=== PATIENT | male | born 1990 | race Caucasian/White ===

== ENCOUNTER 2019-09-08 15:10 | Inpatient (IN) | payer MEDICAID ==
[~2019-09-08] VITALS: Ht 188 cm; Wt 92.1 kg
[2019-09-08] MEDS ORDERED: VENL-193 PO (15:37)
[2019-09-08] MEDS ORDERED: ARIP15TA2 PO (15:37)
[2019-09-08 16:36] LABS: AMPHET/METH SCREEN,URINE NEGATIVE (NEGATIVE); BARBITURATE SCREEN, URINE NEGATIVE (NEGATIVE); BENZODIAZEPINES SCREEN,URINE NEGATIVE (NEGATIVE); CANNABINOID SCREEN,URINE POSITIVE (NEGATIVE); COCAINE SCREEN,URINE NEGATIVE (NEGATIVE); METHADONE SCREEN, URINE NEGATIVE (NEGATIVE); OPIATE SCREEN,URINE NEGATIVE (NEGATIVE)
[2019-09-08 16:41] LABS: PHENCYCLIDINE SCREEN,URINE NEGATIVE (NEGATIVE)
[2019-09-08 16:43] LABS: BASOPHILS % (AUTO) 0.4 % (0.0-2.0); EOSINOPHILS % (AUTO) 1.7 % (1.0-6.0); HEMATOCRIT 45.3 % (41-53); HEMOGLOBIN 14.9 g/dL (13.5-17.5); LYMPHOCYTES # (AUTO) 3.4 K/uL (1.0-4.8); LYMPHOCYTES % (AUTO) 20.3 % (22.0-44.0); MEAN CORPUSCULAR HEMOGLOBIN 27.3 pg (26.0-34.0); MEAN CORPUSCULAR VOLUME 83 fL (80-100); MONOCYTES # (AUTO) 1.3 K/uL (0.1-1.0); MONOCYTES % (AUTO) 7.6 % (2.0-9.0); NEUTROPHILS # (AUTO) 11.6 K/uL (1.8-7.7); PLATELET COUNT (AUTO) 407 K/uL (150-450); RED BLOOD CELL COUNT(AUTO) 5.48 MIL/uL (4.50-5.90)
[2019-09-08 17:06] LABS: ANION GAP 10 mmol/L (8-16); CARBON DIOXIDE 28 mmol/L (22-29); CHLORIDE 102 mmol/L (98-107); CREATININE 0.88 mg/dL (0.60-1.30); GLOMERULAR FILTR. RATE CALC > 60 mL/min (>60); GLUCOSE,RANDOM 95 mg/dL (70-110); POTASSIUM 4.2 mmol/L (3.5-5.1); SODIUM SERUM 140 mmol/L (136-145); UREA NITROGEN, BLOOD 9 mg/dL (7-18)
[2019-09-08 17:12] LABS: ALANINE AMINOTRANSFERASE 30 U/L (12-78); ALBUMIN 3.7 g/dL (3.4-5.0); ALKALINE PHOSPHATASE 98 U/L (46-116); ASPARTATE AMINOTRANSFERASE 19 U/L (15-37); BILIRUBIN,TOTAL 0.5 mg/dL (0.1-1.0); TOTAL PROTEIN, SERUM 9.1 g/dL (6.4-8.2)
[2019-09-08] MEDS ORDERED: LORazepam 2 MG TABLET PO ONE (17:30)
[2019-09-08] MEDS ORDERED: ARIPiprazole 5 MG TABLET PO ONE (17:30)
[2019-09-08] MEDS ORDERED: LORazepam 2 MG TABLET PO PRN (18:30)
[2019-09-08 20:41] VITALS: BP 133/64
[2019-09-08] MEDS: ZOLPIDEM TARTRATE 10 MG TABLET PO PRN (20:46)
[2019-09-08] MEDS ORDERED: INFLUENZA VIRUS VACCINE QVS 2019-20 (3YR+)/PF 60 MCG/0.5 ML SYRINGE IM ONE (21:00)
[2019-09-09 06:40] VITALS: BP 125/75
[2019-09-09 06:57] LABS: BASOPHILS % (AUTO) 0.4 % (0.0-2.0); EOSINOPHILS % (AUTO) 2.6 % (1.0-6.0); HEMATOCRIT 44.3 % (41-53); HEMOGLOBIN 14.7 g/dL (13.5-17.5); LYMPHOCYTES # (AUTO) 2.9 K/uL (1.0-4.8); LYMPHOCYTES % (AUTO) 21.9 % (22.0-44.0); MEAN CORPUSCULAR HEMOGLOBIN 27.4 pg (26.0-34.0); MEAN CORPUSCULAR HGB CONC 33.2 G/dL (31.0-37.0); MEAN CORPUSCULAR VOLUME 82 fL (80-100); MONOCYTES # (AUTO) 1.1 K/uL (0.1-1.0); MONOCYTES % (AUTO) 8.4 % (2.0-9.0); NEUTROPHILS # (AUTO) 8.7 K/uL (1.8-7.7); NEUTROPHILS % (AUTO) 66.7 % (40.0-70.0); PLATELET COUNT (AUTO) 346 K/uL (150-450); RED BLOOD CELL COUNT(AUTO) 5.38 MIL/uL (4.50-5.90); RED CELL DISTRIBUTION WIDTH 13.8 % (11.5-14.5)
[2019-09-09] MEDS ORDERED: ZIPRASIDONE HCL 20 MG CAPSULE PO SCH (07:00)
[2019-09-09 07:26] LABS: ALANINE AMINOTRANSFERASE 25 U/L (12-78); ALBUMIN 3.5 g/dL (3.4-5.0); ALKALINE PHOSPHATASE 90 U/L (46-116); ANION GAP 8 mmol/L (8-16); ASPARTATE AMINOTRANSFERASE 16 U/L (15-37); CALCIUM, TOTAL 8.9 mg/dL (8.8-10.5); CARBON DIOXIDE 29 mmol/L (22-29); CHLORIDE 102 mmol/L (98-107); CREATININE 0.92 mg/dL (0.60-1.30); GLOMERULAR FILTR. RATE CALC > 60 mL/min (>60); GLUCOSE,RANDOM 95 mg/dL (70-110); POTASSIUM 3.8 mmol/L (3.5-5.1); SODIUM SERUM 139 mmol/L (136-145); TOTAL PROTEIN, SERUM 8.3 g/dL (6.4-8.2); UREA NITROGEN, BLOOD 12 mg/dL (7-18)
[2019-09-09 08:07] VITALS: BP 102/60
[2019-09-09] MEDS: FLUoxetine HCL 20 MG CAPSULE PO SCH ×2 (08:41→08:48)
[2019-09-09] MEDS: ARIPiprazole 15 MG TABLET PO SCH (13:13)
[2019-09-09] MEDS: VENLAFAXINE HCL 150 MG ER CAPSULE PO SCH (13:13)
[2019-09-09] MEDS ORDERED: ACETAMINOPHEN 325 MG TABLET PO PRN (15:00)
[2019-09-09] MEDS ORDERED: ALBUTEROL SULFATE HFA 90 MCG/PUFF 8 GM INHALER IH PRN (15:00)
[2019-09-09] MEDS ORDERED: IBUPROFEN 400 MG TABLET PO PRN (15:00)
[2019-09-09] MEDS ORDERED: GuaiFENesin/D-METHORPHAN [SUGAR-FREE] 200-20MG/10 ML SYRUP UDCUP PO PRN (15:00)
[2019-09-09] MEDS ORDERED: NICOTINE 14 MG/24 HOUR PATCH TD PRN (15:00)
[2019-09-09] MEDS ORDERED: MAG HYDROX/AL HYDROX/SIMETH ES 30 ML SUSPENSION UDCUP PO PRN (15:00)
[2019-09-09] MEDS ORDERED: CloNIDine HCL 0.1 MG TABLET PO PRN (15:00)
[2019-09-09] MEDS ORDERED: LOPERAMIDE HCL 2 MG CAPSULE PO PRN (15:00)
[2019-09-09] MEDS ORDERED: ONDANSETRON HCL 4 MG TABLET PO PRN (15:00)
[2019-09-09] MEDS ORDERED: PETROLATUM,WHITE 28 GM JELLY TP PRN (15:00)
[2019-09-09] MEDS ORDERED: MAGNESIUM HYDROXIDE SUSPENSION 30 ML UDCUP PO PRN (15:00)
[2019-09-09] MEDS ORDERED: DOCUSATE SODIUM 100 MG CAPSULE PO PRN (15:00)
[2019-09-09 16:44] VITALS: BP 130/77
[2019-09-10 01:29] VITALS: BP 133/80
[2019-09-10 08:08] VITALS: BP 126/70
[2019-09-10] MEDS: ARIPiprazole 15 MG TABLET PO SCH (08:22)
[2019-09-10] MEDS: VENLAFAXINE HCL 150 MG ER CAPSULE PO SCH (08:22)
[2019-09-10 16:07] VITALS: BP 132/94
[2019-09-10] MEDS: ZOLPIDEM TARTRATE 10 MG TABLET PO PRN (21:01)
[2019-09-11 00:07] VITALS: BP 139/98
[2019-09-11 08:31] VITALS: BP 128/82
[2019-09-11] MEDS: ARIPiprazole 15 MG TABLET PO SCH (09:51)
[2019-09-11] MEDS: VENLAFAXINE HCL 150 MG ER CAPSULE PO SCH (09:51)
== END 2019-09-11 13:44 | disposition home or self-care (01) | DRG 750 ==
LOC: EMS 15:10 → B2S 20:28
PROVIDERS: ADMIT Psychiatry & Neurology Psychiatry; ATTEND Psychiatry & Neurology Psychiatry
DX: F25.1 Schizoaffective disorder, depressive type (principal); R45.851 Suicidal ideations; D72.829 Elevated white blood cell count, unspecified; Z88.8 Allergy status to other drugs, medicaments and biological substances; F99 Mental disorder, not otherwise specified
CPT/HCPCS: G0480

== ENCOUNTER 2023-01-25 21:24 | Emergency (ER) | payer MEDICAID, OTHER ==
[~2023-01-25] VITALS: Ht 188 cm; Wt 85.9 kg
[~2023-01-25 21:24] MED LIST: ARIP15TA27 PO; VENL-193 PO
[2023-01-25 21:57] VITALS: BP 104/61
[2023-01-25] MEDS ORDERED: IBUPROFEN 600 MG TABLET PO ONE (23:15)
== END 2023-01-26 00:46 | disposition left against medical advice (07) ==
LOC: EMS 21:32
DX: S62.501A Fracture of unspecified phalanx of right thumb, initial encounter for closed fracture (principal); F32.A Depression, unspecified; Z88.8 Allergy status to other drugs, medicaments and biological substances; X58.XXXA Exposure to other specified factors, initial encounter; Y93.89 Activity, other specified; Y92.89 Other specified places as the place of occurrence of the external cause; Y99.8 Other external cause status
CPT/HCPCS: 99283

== ENCOUNTER 2023-09-14 14:08 | Inpatient (IN) | payer MEDICAID, OTHER ==
[~2023-09-14] VITALS: Ht 182.9 cm; Wt 91.2 kg
[~2023-09-14 14:08] MED LIST changes: -ARIP15TA27 PO; +DIVA500T69 PO; +LITH300C3 PO; +LURA20TA2 PO; +MELA5TAB40 PO; +MIRT-89 PO; +NALT50TA PO; +OMEG-135 PO; -VENL-193 PO
[2023-09-14 14:41] LABS: EOSINOPHILS % (AUTO) 6.3 % (1.0-6.0); HEMATOCRIT 47.4 % (41-53); HEMOGLOBIN 15.8 g/dL (13.5-17.5); LYMPHOCYTES # (AUTO) 3.2 K/uL (1.0-4.8); LYMPHOCYTES % (AUTO) 29.6 % (22.0-44.0); MEAN CORPUSCULAR HEMOGLOBIN 27.6 pg (26.0-34.0); MEAN CORPUSCULAR HGB CONC 33.4 G/dL (31.0-37.0); MEAN CORPUSCULAR VOLUME 83 fL (80-100); MONOCYTES # (AUTO) 0.8 K/uL (0.1-1.0); MONOCYTES % (AUTO) 7.9 % (2.0-9.0); NEUTROPHILS # (AUTO) 5.9 K/uL (1.8-7.7); NEUTROPHILS % (AUTO) 55.2 % (40.0-70.0); PLATELET COUNT (AUTO) 343 K/uL (150-450); RED BLOOD CELL COUNT(AUTO) 5.74 MIL/uL (4.50-5.90); RED CELL DISTRIBUTION WIDTH 14.7 % (11.5-14.5); WHITE BLOOD COUNT (AUTO) 10.7 K/uL (4.5-11.0)
[2023-09-14 14:48] LABS: COVID AG,FIA SOURCE NASAL SWAB
[2023-09-14 14:49] LABS: ANION GAP 9 mmol/L (8-16); CALCIUM, TOTAL 9.5 mg/dL (8.8-10.5); CARBON DIOXIDE 26 mmol/L (22-29); CHLORIDE 101 mmol/L (98-107); CREATININE 0.93 mg/dL (0.60-1.30); GLOMERULAR FILTR. RATE CALC > 60 mL/min (>60); GLUCOSE,RANDOM 100 mg/dL (70-110); SODIUM SERUM 136 mmol/L (136-145); UREA NITROGEN, BLOOD 8 mg/dL (7-18)
[2023-09-14 14:54] LABS: ALCOHOL, BLOOD (SERUM) < 3 mg/dL (0-10)
[2023-09-14 14:55] LABS: ALANINE AMINOTRANSFERASE 31 U/L (12-78); ALKALINE PHOSPHATASE 95 U/L (46-116); ASPARTATE AMINOTRANSFERASE 14 U/L (15-37); BILIRUBIN,TOTAL 0.6 mg/dL (0.1-1.0); TOTAL PROTEIN, SERUM 8.8 g/dL (6.4-8.2)
[2023-09-14 14:57] LABS: ALCOHOL, URINE DRUG SCREEN NEGATIVE (NEGATIVE); AMPHET/METH SCREEN,URINE NEGATIVE (NEGATIVE); BARBITURATE SCREEN, URINE NEGATIVE (NEGATIVE); BENZODIAZEPINES SCREEN,URINE NEGATIVE (NEGATIVE); CANNABINOID SCREEN,URINE POSITIVE (NEGATIVE); COCAINE SCREEN,URINE NEGATIVE (NEGATIVE); METHADONE SCREEN, URINE NEGATIVE (NEGATIVE); OPIATE SCREEN,URINE NEGATIVE (NEGATIVE); PHENCYCLIDINE SCREEN,URINE NEGATIVE (NEGATIVE)
[2023-09-14 15:06] LABS: SARS-COV2 (COVID) ANTIGEN,FIA Negative (Negative)
[2023-09-14] MEDS ORDERED: MAG HYDROX/ALUMINUM HYD/SIMETH ES 30 ML SUSPENSION UDCUP PO PRN (16:30)
[2023-09-14] MEDS ORDERED: ZOLPIDEM TARTRATE 10 MG TABLET PO PRN (16:30)
[2023-09-14] MEDS ORDERED: MAGNESIUM HYDROXIDE SUSPENSION 30 ML UDCUP PO PRN (16:30)
[2023-09-14] MEDS ORDERED: GuaiFENesin/D-METHORPHAN [SUGAR-FREE] 200-20MG/10 ML SYRUP UDCUP PO PRN (16:30)
[2023-09-14] MEDS ORDERED: ACETAMINOPHEN 325 MG TABLET PO PRN (16:30)
[2023-09-14] MEDS ORDERED: LURASIDONE HCL 20 MG TABLET PO PRN (16:30)
[2023-09-14] MEDS ORDERED: HydrOXYzine PAMOATE 50 MG CAPSULE PO PRN (16:30)
[2023-09-14] MEDS ORDERED: LOPERAMIDE HCL 2 MG CAPSULE PO PRN (16:30)
[2023-09-14] MEDS ORDERED: LORazepam 2 MG TABLET PO PRN (16:30)
[2023-09-14] MEDS ORDERED: PROMETHAZINE HCL 25 MG TABLET PO PRN (16:30)
[2023-09-14] MEDS ORDERED: DIVALPROEX SODIUM 500 MG ER TABLET PO SCH (21:00)
[2023-09-14] MEDS ORDERED: MIRTAZAPINE 15 MG TABLET PO SCH (21:00)
[2023-09-14] MEDS ORDERED: LITHIUM CARBONATE 300 MG CAPSULE PO SCH (21:00)
[2023-09-14] MEDS: THIAMINE 100 MG TABLET PO SCH (21:33)
[2023-09-14] MEDS: MELATONIN 5 MG TABLET PO SCH (21:34)
[2023-09-15 03:41] VITALS: PULSE 84; RESP 18; TEMP 97.7
[2023-09-15] MEDS ORDERED: INFLUENZA VIRUS VACCINE QVS 2023-24 (6MO+)/PF 60 MCG/0.5 ML SYRINGE IM. ONE (04:30)
[2023-09-15] MEDS: LURASIDONE HCL 40 MG TABLET PO SCH (06:20)
[2023-09-15] MEDS: FOLIC ACID 1 MG TABLET PO SCH (08:30)
[2023-09-15] MEDS: MULTIVITAMINS WITH MINERALS, THERAPEUTIC TABLET PO SCH (08:30)
[2023-09-15] MEDS: THIAMINE 100 MG TABLET PO SCH ×2 (08:30→17:14)
[2023-09-15] MEDS: NALTREXONE HCL 50 MG TABLET PO SCH (08:30)
[2023-09-15] MEDS ORDERED: PALIPERIDONE PALMITATE 234 MG/1.5 ML SYRINGE IM ONE (09:00)
[2023-09-15] MEDS ORDERED: OMEGA-3/DHA/EPA/FISH OIL 1,000 MG CAPSULE PO SCH (09:00)
[2023-09-15 09:16] VITALS: BP 110/64; PULSE 61; RESP 17; TEMP 97.1; O2SAT 97
[2023-09-15 20:38] VITALS: BP 125/82; PULSE 123; RESP 18; TEMP 97.5; O2SAT 99
[2023-09-15] MEDS: MELATONIN 5 MG TABLET PO SCH (21:00)
[2023-09-16] MEDS: LURASIDONE HCL 40 MG TABLET PO SCH (06:51)
[2023-09-16] MEDS: MULTIVITAMINS WITH MINERALS, THERAPEUTIC TABLET PO SCH (08:35)
[2023-09-16] MEDS: NALTREXONE HCL 50 MG TABLET PO SCH (08:35)
[2023-09-16] MEDS: THIAMINE 100 MG TABLET PO SCH ×2 (08:35→16:29)
[2023-09-16] MEDS: FOLIC ACID 1 MG TABLET PO SCH (08:35)
[2023-09-16 08:47] VITALS: BP 119/70; PULSE 100; RESP 17; TEMP 97.6; O2SAT 100
[2023-09-16 20:56] VITALS: BP 115/76; PULSE 89; RESP 18; TEMP 97.9; O2SAT 100
[2023-09-17] MEDS ORDERED: LURASIDONE HCL 60 MG TABLET PO SCH (07:00)
[2023-09-17 08:28] VITALS: BP 129/66; PULSE 89; RESP 18; TEMP 97.8; O2SAT 100
[2023-09-17] MEDS: FOLIC ACID 1 MG TABLET PO SCH (09:04)
[2023-09-17] MEDS: THIAMINE 100 MG TABLET PO SCH ×2 (09:04→17:03)
[2023-09-17] MEDS: MULTIVITAMINS WITH MINERALS, THERAPEUTIC TABLET PO SCH (09:04)
[2023-09-17] MEDS: NALTREXONE HCL 50 MG TABLET PO SCH (09:04)
[2023-09-17 20:31] VITALS: BP 139/89; PULSE 106; RESP 19; TEMP 97.4; O2SAT 100
[2023-09-18] MEDS ORDERED: LURASIDONE HCL 80 MG TABLET PO SCH (07:00)
[2023-09-18 08:21] VITALS: BP 121/74; PULSE 89; RESP 18; TEMP 97.7; O2SAT 98
[2023-09-18] MEDS: FOLIC ACID 1 MG TABLET PO SCH (08:40)
[2023-09-18] MEDS: THIAMINE 100 MG TABLET PO SCH ×2 (08:40→16:06)
[2023-09-18] MEDS: MULTIVITAMINS WITH MINERALS, THERAPEUTIC TABLET PO SCH (08:40)
[2023-09-18] MEDS: NALTREXONE HCL 50 MG TABLET PO SCH (08:40)
[2023-09-18 20:39] VITALS: BP 100/75; PULSE 80; RESP 18; TEMP 98; O2SAT 97
[2023-09-19] MEDS ORDERED: LURASIDONE HCL 40 MG TABLET PO SCH (07:00)
[2023-09-19 08:20] VITALS: BP 125/86; PULSE 100; RESP 18; TEMP 98; O2SAT 96
[2023-09-19] MEDS ORDERED: PALIPERIDONE PALMITATE 156 MG/ML SYRINGE IM ONE (09:00)
[2023-09-19] MEDS: THIAMINE 100 MG TABLET PO SCH ×2 (09:20→16:29)
[2023-09-19] MEDS: NALTREXONE HCL 50 MG TABLET PO SCH (09:20)
[2023-09-19] MEDS: MULTIVITAMINS WITH MINERALS, THERAPEUTIC TABLET PO SCH (09:20)
[2023-09-19] MEDS: FOLIC ACID 1 MG TABLET PO SCH (09:20)
[2023-09-19 20:20] VITALS: BP 137/91; PULSE 100; RESP 17; TEMP 98; O2SAT 99
[2023-09-20] MEDS: LURASIDONE HCL 60 MG TABLET PO SCH (06:46)
[2023-09-20 08:46] VITALS: BP 142/95; PULSE 100; RESP 18; TEMP 97.8; O2SAT 96
[2023-09-20] MEDS: THIAMINE 100 MG TABLET PO SCH ×2 (09:00→17:02)
[2023-09-20] MEDS: FOLIC ACID 1 MG TABLET PO SCH (09:00)
[2023-09-20] MEDS: MULTIVITAMINS WITH MINERALS, THERAPEUTIC TABLET PO SCH (09:00)
[2023-09-20] MEDS: NALTREXONE HCL 50 MG TABLET PO SCH (09:00)
[2023-09-20 20:14] VITALS: BP 129/65; PULSE 95; RESP 19; TEMP 98.2; O2SAT 97
[2023-09-20] MEDS ORDERED: NALT50TA PO (21:38)
[2023-09-20] MEDS ORDERED: LURA60TA4 PO (21:38)
[2023-09-21] MEDS: LURASIDONE HCL 60 MG TABLET PO SCH (06:32)
[2023-09-21 08:28] VITALS: BP 136/74; PULSE 95; RESP 18; TEMP 97.6; O2SAT 100
[2023-09-21] MEDS: NALTREXONE HCL 50 MG TABLET PO SCH (09:15)
[2023-09-21] MEDS: THIAMINE 100 MG TABLET PO SCH (09:15)
[2023-09-21] MEDS: FOLIC ACID 1 MG TABLET PO SCH (09:15)
[2023-09-21] MEDS: MULTIVITAMINS WITH MINERALS, THERAPEUTIC TABLET PO SCH (09:15)
[2023-09-21] MEDS ORDERED: LURA60TA PO (10:06)
== END 2023-09-21 11:48 | disposition home or self-care (01) | DRG 751 ==
LOC: EMS 14:32 → B3A 09-15 01:00 → B2S 09-16 10:52
PROVIDERS: ADMIT Psychiatry & Neurology Psychiatry; ATTEND Psychiatry & Neurology Psychiatry
DX: F33.2 Major depressive disorder, recurrent severe without psychotic features (principal); F25.9 Schizoaffective disorder, unspecified; R45.851 Suicidal ideations; F12.10 Cannabis abuse, uncomplicated; F17.200 Nicotine dependence, unspecified, uncomplicated; Z55.9 Problems related to education and literacy, unspecified; Z20.822 Contact with and (suspected) exposure to COVID-19; Z59.9 Problem related to housing and economic circumstances, unspecified; Z63.9 Problem related to primary support group, unspecified; Z65.3 Problems related to other legal circumstances; Z88.0 Allergy status to penicillin; Z88.8 Allergy status to other drugs, medicaments and biological substances; Z91.51 Personal history of suicidal behavior; Z79.899 Other long term (current) drug therapy
CPT/HCPCS: 80053; 80307; 85025; 99285; G0480; Q9967

== ENCOUNTER 2024-09-23 07:46 | Emergency (ER) | payer MEDICAID, OTHER ==
[~2024-09-23] VITALS: Ht 180.3 cm; Wt 93.0 kg
[~2024-09-23 07:46] MED LIST changes: -DIVA500T69 PO; -LITH300C3 PO; -LURA20TA2 PO; +LURA60TA PO; +LURA60TA4 PO; -MELA5TAB40 PO; -MIRT-89 PO; -NALT50TA PO; +NALT50TA6 PO; -OMEG-135 PO
[2024-09-23 08:10] LABS: BASOPHILS % (AUTO) 0.6 % (0.0-2.0); LYMPHOCYTES % (AUTO) 23.5 % (22.0-44.0); NEUTROPHILS # (AUTO) 10.6 K/uL (1.8-7.7)
[2024-09-23 08:14] LABS: EOSINOPHILS % (AUTO) 2.8 % (1.0-6.0); HEMATOCRIT 44.2 % (41-53); HEMOGLOBIN 15.2 g/dL (13.5-17.5); LYMPHOCYTES # (AUTO) 3.8 K/uL (1.0-4.8); MEAN CORPUSCULAR HEMOGLOBIN 28.3 pg (26.0-34.0); MEAN CORPUSCULAR HGB CONC 34.3 G/dL (31.0-37.0); MEAN CORPUSCULAR VOLUME 83 fL (80-100); MONOCYTES # (AUTO) 1.1 K/uL (0.1-1.0); MONOCYTES % (AUTO) 6.8 % (2.0-9.0); NEUTROPHILS % (AUTO) 66.3 % (40.0-70.0); PLATELET COUNT (AUTO) 360 K/uL (150-450); RED BLOOD CELL COUNT(AUTO) 5.36 MIL/uL (4.50-5.90); RED CELL DISTRIBUTION WIDTH 14.1 % (11.5-14.5)
[2024-09-23 08:18] LABS: ANION GAP 10 mmol/L (8-16); CALCIUM, TOTAL 8.6 mg/dL (8.8-10.5); CARBON DIOXIDE 26 mmol/L (22-29); CHLORIDE 101 mmol/L (98-107); GLOMERULAR FILTR. RATE CALC > 60 mL/min (>60); GLUCOSE,RANDOM 111 mg/dL (70-110); POTASSIUM 3.8 mmol/L (3.5-5.1); SODIUM SERUM 137 mmol/L (136-145); UREA NITROGEN, BLOOD 9 mg/dL (7-18)
[2024-09-23 08:27] LABS: ALCOHOL, BLOOD (SERUM) < 3 mg/dL (0-10)
[2024-09-23] MEDS: DiphenhydrAMINE HCL 25 MG CAPSULE PO ONE (08:32)
[2024-09-23] MEDS: LORazepam 2 MG TABLET PO ONE (08:32)
[2024-09-23 08:44] LABS: COVID AG,FIA SOURCE NASAL SWAB
[2024-09-23] MEDS: LURASIDONE HCL 20 MG TABLET PO ONE (08:58)
[2024-09-23 09:04] LABS: SARS-COV2 (COVID) ANTIGEN,FIA Negative (Negative)
[2024-09-23 09:05] VITALS: BP 128/86; PULSE 87; RESP 16; TEMP 98.2; O2SAT 99
== END 2024-09-23 11:28 ==
LOC: EMS 07:48
DX: R45.850 Homicidal ideations (principal); F31.9 Bipolar disorder, unspecified; F20.9 Schizophrenia, unspecified; Z88.0 Allergy status to penicillin; Z88.8 Allergy status to other drugs, medicaments and biological substances; Z20.822 Contact with and (suspected) exposure to COVID-19
CPT/HCPCS: 99285; 87426; 80048; 85025; 36415; G0480

== ENCOUNTER 2025-08-05 07:59 | Inpatient (IN) | payer MEDICAID, OTHER ==
[~2025-08-05] VITALS: Ht 188 cm; Wt 87.0 kg
[2025-08-05 08:15] LABS: COVID AG,FIA SOURCE NASAL SWAB
[2025-08-05 08:28] LABS: PLATELET COUNT (AUTO) 339 K/uL (150-450); RED BLOOD CELL COUNT(AUTO) 5.05 MIL/uL (4.50-5.90); RED CELL DISTRIBUTION WIDTH 14.0 % (11.5-14.5); WHITE BLOOD COUNT (AUTO) 12.4 K/uL (4.5-11.0)
[2025-08-05 08:32] LABS: CALCIUM, TOTAL 7.9 mg/dL (8.8-10.5); CREATININE 0.80 mg/dL (0.60-1.30); GLOMERULAR FILTR. RATE CALC > 60 mL/min (>60); GLUCOSE,RANDOM 80 mg/dL (70-110); SODIUM SERUM 139 mmol/L (136-145); UREA NITROGEN, BLOOD 11 mg/dL (7-18)
[2025-08-05 08:50] LABS: SARS-COV2 (COVID) ANTIGEN,FIA Negative (Negative)
[2025-08-05 10:56] LABS: APPEARANCE,URINE CLEAR (CLEAR); GLUCOSE, URINE (UA) TRACE mg/dL (NEGATIVE); LEUKOCYTE ESTERASE ,URINE NEGATIVE (NEGATIVE); NITRATE,URINE NEGATIVE (NEGATIVE); OCCULT BLOOD,URINE NEGATIVE (NEGATIVE); PH,URINE DRUG SCREEN 5.0 (5.0-8.0); SPECIFIC GRAVITIY, URINE 1.016 (1.003-1.030)
[2025-08-05 11:04] LABS: ALCOHOL, URINE DRUG SCREEN POSITIVE (NEGATIVE); AMPHET/METH SCREEN,URINE NEGATIVE (NEGATIVE); BARBITURATE SCREEN, URINE NEGATIVE (NEGATIVE); CANNABINOID SCREEN,URINE POSITIVE (NEGATIVE); COCAINE SCREEN,URINE NEGATIVE (NEGATIVE); METHADONE SCREEN, URINE NEGATIVE (NEGATIVE)
[2025-08-06] MEDS: ZOLPIDEM TARTRATE 10 MG TABLET PO PRN (00:16)
[2025-08-06 05:07] LABS: PLATELET COUNT (AUTO) 325 K/uL (150-450); RED BLOOD CELL COUNT(AUTO) 5.21 MIL/uL (4.50-5.90); RED CELL DISTRIBUTION WIDTH 14.4 % (11.5-14.5); WHITE BLOOD COUNT (AUTO) 11.2 K/uL (4.5-11.0)
[2025-08-06 05:26] LABS: ASPARTATE AMINOTRANSFERASE 19 U/L (15-37); CALCIUM, TOTAL 8.6 mg/dL (8.8-10.5); CHOL/HDL RATIO 3.8 (4.2-7.3); CREATININE 0.60 mg/dL (0.60-1.30); GLOMERULAR FILTR. RATE CALC > 60 mL/min (>60); GLUCOSE,RANDOM 80 mg/dL (70-110); LDL CHOL (CALC.) 91 mg/dL (0-130); SODIUM SERUM 137 mmol/L (136-145); TOTAL PROTEIN, SERUM 7.3 g/dL (6.4-8.2); UREA NITROGEN, BLOOD 14 mg/dL (7-18)
[2025-08-06 14:30] VITALS: BP 122/89; PULSE 96; RESP 18; TEMP 98.1; O2SAT 99
[2025-08-06 17:00] VITALS: BP 124/91; PULSE 98; RESP 18; TEMP 98.4; O2SAT 100
[2025-08-06 20:19] VITALS: BP 121/83; PULSE 86; RESP 18; TEMP 97; O2SAT 99
[2025-08-07 08:56] VITALS: BP 100/69; PULSE 87; RESP 17; TEMP 98.1; O2SAT 100
[2025-08-07] MEDS ORDERED: BENZOCAINE/MENTHOL [CEPACOL] LOZENGE PO PRN (10:30)
[2025-08-07] MEDS ORDERED: ONDANSETRON 4 MG TABLET PO PRN (10:30)
[2025-08-07] MEDS ORDERED: BACITRACIN 28 GM OINTMENT TP PRN (10:30)
[2025-08-07] MEDS ORDERED: PETROLATUM,WHITE 28 GM JELLY TP PRN (10:30)
[2025-08-07] MEDS ORDERED: LOPERAMIDE HCL 2 MG CAPSULE PO PRN (10:30)
[2025-08-07] MEDS ORDERED: DOCUSATE SODIUM 100 MG CAPSULE PO PRN (10:30)
[2025-08-07] MEDS ORDERED: MAG HYDROX/ALUMINUM HYD/SIMETH ES 30 ML SUSPENSION UDCUP PO PRN (10:30)
[2025-08-07] MEDS ORDERED: OMEPRAZOLE 20 MG CAPSULE PO PRN (10:30)
[2025-08-07] MEDS ORDERED: IBUPROFEN 600 MG TABLET PO PRN (10:30)
[2025-08-07] MEDS ORDERED: MAGNESIUM HYDROXIDE SUSPENSION 30 ML UDCUP PO PRN (10:30)
[2025-08-07] MEDS ORDERED: ALBUTEROL SULFATE HFA 90 MCG/PUFF 8 GM INHALER IH PRN (10:30)
[2025-08-07] MEDS: DIVALPROEX SODIUM 500 MG DR TABLET PO SCH (17:00)
[2025-08-07] MEDS: LITHIUM CARBONATE 300 MG CAPSULE PO SCH (17:00)
[2025-08-07 20:40] VITALS: RESP 17
[2025-08-08] MEDS ORDERED: LORazepam 2 MG/ML VIAL ONE (07:37)
[2025-08-08] MEDS: LORazepam 2 MG/ML VIAL IM ONE (07:45)
[2025-08-08 08:58] VITALS: BP 115/83; PULSE 99; RESP 17; TEMP 98.1; O2SAT 100
[2025-08-08 20:14] VITALS: BP 105/75; PULSE 86; RESP 16; TEMP 98.3; O2SAT 99
[2025-08-09 08:14] VITALS: BP 118/65; PULSE 83; RESP 18; TEMP 97.9; O2SAT 100
[2025-08-09 20:19] VITALS: BP 141/83; PULSE 100; RESP 18; TEMP 97.9; O2SAT 100
[2025-08-10 08:12] VITALS: BP 101/61; PULSE 82; RESP 18; TEMP 98.4; O2SAT 99
[2025-08-10 20:20] VITALS: BP 118/68; PULSE 74; RESP 18; TEMP 97.2; O2SAT 96
[2025-08-11 12:37] VITALS: BP 109/65; PULSE 87; RESP 18; TEMP 97.6; O2SAT 99
[2025-08-11 20:11] VITALS: BP 112/72; PULSE 62; RESP 18; TEMP 98.5; O2SAT 99
[2025-08-12 08:12] VITALS: RESP 18
[2025-08-12 17:15] VITALS: RESP 18
[2025-08-12] MEDS: ACETAMINOPHEN 325 MG TABLET PO PRN (17:16)
[2025-08-12 18:15] VITALS: RESP 18
[2025-08-12 20:22] VITALS: BP 122/72; PULSE 99; RESP 18; TEMP 97.3; O2SAT 100
[2025-08-13 08:10] VITALS: BP 108/74; PULSE 96; RESP 16; TEMP 97.3; O2SAT 100
[2025-08-13 09:04] LABS: VALPROIC ACID 11 mcg/mL (50-100)
[2025-08-13 20:43] VITALS: BP 116/76; PULSE 98; RESP 18; TEMP 97.9; O2SAT 95
[2025-08-14] MEDS ORDERED: DIVA-112 PO (07:57)
[2025-08-14] MEDS ORDERED: LITH300C3 PO (07:59)
[2025-08-14] MEDS ORDERED: RISP3TAB77 PO (08:00)
[2025-08-14] MEDS ORDERED: ARIP15TA27 PO (08:00)
[2025-08-14 08:16] VITALS: BP 110/77; PULSE 90; RESP 17; TEMP 98.6; O2SAT 100
== END 2025-08-14 14:32 | disposition home or self-care (01) | DRG 761 ==
LOC: EMS 08:12 → B3A 08-06 12:56
PROVIDERS: ADMIT Psychiatry & Neurology Psychiatry; ATTEND Psychiatry & Neurology Psychiatry
DX: F25.9 Schizoaffective disorder, unspecified (principal); R45.851 Suicidal ideations; F10.10 Alcohol abuse, uncomplicated; F12.10 Cannabis abuse, uncomplicated; Z20.822 Contact with and (suspected) exposure to COVID-19; F41.9 Anxiety disorder, unspecified; G47.00 Insomnia, unspecified; Z79.899 Other long term (current) drug therapy; K59.00 Constipation, unspecified; Z91.148 Patient's other noncompliance with medication regimen for other reason
CPT/HCPCS: 80048; 80053; 80061; 80164; 80178; 80307; 81003; 83036; 84436; 84439; 85025; 99285; G0480; J1200; J1630; J2060